=== PATIENT | female | born 1995 | race Caucasian/White ===

== ENCOUNTER 2016-11-23 14:50 | Emergency (ER) | payer OTHER ==
[2016-11-23 14:54] VITALS: BMI 30.9
[2016-11-23 14:59] VITALS: BP 127/79; PULSE 95; RESP 18; TEMP 98.2; O2SAT 99
--- NOTE | 2016-11-23 15:12 | C.PDOC ---
History Of Present Illness 21 y/o female presents to ED with complaints of possible tampon inside vagina. Patient states yesterday she put tampon in and went swimming, tried to take out Tampon and could not find string. Patient denies vaginal or pelvic pain, or any other associated complaints at this time. Menses started 3 days ago. Time Seen by Provider: 11/23/16 15:00 Chief Complaint (Nursing): Female Genitourinary History Per: Patient History/Exam Limitations: no limitations Onset/Duration Of Symptoms: Days Current Symptoms Are (Timing): Still Present Past Medical History Reviewed: Historical Data, Nursing Documentation, Vital Signs Vital Signs: Last Vital Signs Temp 98.2 F 11/23/16 14:56 Pulse 95 H 11/23/16 14:56 Resp 18 11/23/16 14:56 BP 127/79 11/23/16 14:56 Pulse Ox 99 11/23/16 15:21 - Medical History Other PMH: caudal regression syndrome Other Surgeries: 3 sx to both legs, right nephrostomy stoma, right partial nephrectomy Family History: States: Unknown Family Hx - Social History Hx Tobacco Use: No Hx Alcohol Use: No Hx Substance Use: No - Immunization History Hx Tetanus Toxoid Vaccination: Yes Hx Influenza Vaccination: No Hx Pneumococcal Vaccination: No Review Of Systems Constitutional: Negative for: Fever, Chills Gastrointestinal: Negative for: Nausea, Vomiting, Abdominal Pain, Diarrhea Genitourinary: Positive for: Vaginal Bleeding. Negative for: Pelvic Pain Skin: Negative for: Rash Physical Exam - Physical Exam Appears: Non-toxic, No Acute Distress Skin: Normal Color, Warm, No Rash Head: Atraumatic, Normacephalic Eye(s): bilateral: Normal Inspection Oral Mucosa: Moist Neck: Normal ROM Chest: Symmetrical Pelvic: Normal External Exam, Vaginal Bleeding, No Tender Uterus, Other (No foreign body noted) Extremity: Normal ROM Neurological/Psych: Oriented x3, Normal Speech Gait: With Assistance (arm rests) ED Course And Treatment O2 Sat by Pulse Oximetry: 99 (RA) Pulse Ox Interpretation: Normal Medical Decision Making Medical Decision Making: Patient complains of possible tampon in the vagina. Exam showed no foreign body. Patient has no pain or other complaint. Disposition Counseled Patient/Family Regarding: Need For Followup - Disposition Disposition: HOME/ ROUTINE Disposition Time: 15:12 Condition: STABLE Additional Instructions: You were examined and no tampon was found Instructions: Menstruation (ED) Forms: [facility] (Bulgarian) - POA Present On Arrival: None - Clinical Impression Clinical Impression: No foreign body found on evaluation - Scribe Statement The provider has reviewed the documentation as recorded by the Tomiblisette Galvez All medical record entries made by the Tomibe were at my direction and personally dictated by me. I have reviewed the chart and agree that the record accurately reflects my personal performance of the history, physical exam, medical decision making, and the department course for this patient. I have also personally directed, reviewed, and agree with the discharge instructions and disposition.
== END 2016-11-23 15:30 | disposition home or self-care (01) ==
LOC: C.ER 14:50
DX: Z04.8 Encounter for examination and observation for other specified reasons (principal)